=== PATIENT | female | born 1985 | race Caucasian/White ===

== ENCOUNTER 2017-09-20 03:37 | Inpatient (IN) ==
--- OUTSIDE RECORDS SUMMARY | 2017-09-20 06:30 | External Medical Summary | Continuity of Care Document ---
:1985 Author Organization [facility] Address [address] [place], [place] [address] Phone Support Name Relationship Address Phone Pa Turner spouse [address] [place] [address] Allergies, Adverse Reactions, Alerts Substance Reaction Severity Status No Known Drug Allergies Unknown Active Medications Medication Instructions Dosage Effective Dates Status Comments (start - stop) valacyclovir 500 mg take 1 tablet by 500 MG - Active tablet oral route every 12 hours ferrous sulfate 325 take 1 tablet by 325 MG - Active mg (65 mg iron) ORAL route every tablet day 28 mg take 1 tablet by Not Available - Active iron-800 mcg tablet oral route every day Problems Condition Effective Dates (start - stop) Clinical Status Unspecified maternal hypertension, - third trimester Encounter for suprvsn of normal - , third trimester 34 weeks gestation of - Spotting complicating , unspecified trimester Encntr for suprvsn of normal , unsp, unsp trimester Labor and delivery complicated by oth - cord comp, unsp Encounter for suprvsn of normal - , third trimester 37 weeks gestation of - Unspecified maternal hypertension, - third trimester Labor and delivery complicated by oth - cord comp, unsp Endo, nutritional and metab diseases - comp preg, third tri 37 weeks gestation of - Unspecified maternal hypertension, - third trimester 34 weeks gestation of - Labor and delivery complicated by oth - cord comp, unsp Endo, nutritional and metab diseases - comp preg, third tri 29 weeks gestation of - Labor and delivery complicated by oth - cord comp, unsp Encounter for suprvsn of normal - , second trimester 24 weeks gestation of - Labor and delivery complicated by oth - cord comp, unsp Encounter for suprvsn of normal - , third trimester 32 weeks gestation of - Labor and delivery complicated by oth - cord comp, unsp Encounter for suprvsn of normal - , second trimester 20 weeks gestation of - Encntr screen for infections w sexl - mode of transmiss Encounter for screening for oth - infec/parastc diseases Encounter for suprvsn of normal - , first trimester Encounter for screening of - mother 10 weeks gestation of - Encounter for suprvsn of normal - , first trimester 12 weeks gestation of - Encounter for suprvsn of normal - , first trimester 12 weeks gestation of - Encounter for suprvsn of normal - , second trimester 16 weeks gestation of - Encounter for suprvsn of normal - , third trimester 29 weeks gestation of - Encounter for suprvsn of normal - , third trimester Encounter For Screening For - Streptococcus B 36 weeks gestation of - Encounter for suprvsn of normal - , third trimester 31 weeks gestation of - Encounter For Screening For - Malformations 20 weeks gestation of - Kidney Stones Active Herpes Simplex Virus Active Procedures Procedure Date OB Visit No Charge - [facility] Automated hemogram (CBC) Metabolic panel, comprehensive Creatinine clearance test Assay Of Protein, Urine Venpnctr fngr/heel/ear stick routne Results Test Name Date and Time Measure Units Reference Range Abnormal Flag Comments Unknown Advance Directives Directive Yes / No Effective Date File Name Unknown Encounters Encounter Practice Location Reason(s) Diagnoses Date Provider Care Team Description For Visit Members Hugh Kurtz Unspecified Apr-2 Pa Referring In Womens Ultrasound maternal 5-201 [place]. 700 Provider: Health GRIFFIN, hypertension, 8 Medical See PO Box [facility] Pa R, 1522, trimesterLabor Ari Shell, and delivery 120, Medical [place], complicated by M[address] [id number], oth cord comp, [place], Ari 120, [place] unspEndo, [id number] Jerardo, tel: nutritional and , [place]. [place], metab diseases tel:[phone]. comp preg, third [id number] tel: tri37 weeks [id number] gestation of [facility] Labor and Apr-2 Pa Referring In Womens delivery -201 [place]. 700 Provider: Marlin MOYA, complicated by 8 Medical See PO Box oth cord comp, [place] Pa R, 1522, unspEncounter for Ari Shell, suprvsn of normal 120, Medical [place], , third M[address] [id number], [id number] weeks [place], Ari 120, [place] gestation of [id number] Jerardo, tel: , [place]. [place], tel: [phone]. [id number] tel:[phone] Hugh Kurtz Encounter for Apr-1 Pa Referring In Womens suprvsn of normal 9-201 [place]. 700 Provider: Health PA, , third 8 Medical See PO Box [facility] Pa R, 1522, r For Ari Shell, Screening For 120, Medical [place], Streptococcus B[address] [id number], weeks gestation [place], Ari 120, [place] of [id number] Jerardo, tel: , [place]. [place], tel: [phone]. [id number] tel:[phone] Hugh Kurtz Unspecified Apr-0 Pa Referring In Womens maternal 5-201 [place]. 700 Provider: Health GRIFFIN, hypertension, 8 Medical See PO Box third Center Pa R, 1522, trimesterEncounte Ari Shell, r for suprvsn of 120, Medical [place], normal , Kurtz, [place] [id number], third [place], Ari 120, [place] weeks gestation [id number] Jerardo, tel: of , [place]. [place], tel: [phone]. [id number] tel:[phone] Hugh Kurtz Unspecified Apr-0 Pa Referring In Womens maternal 4-201 [place]. 700 Provider: Health PA, hypertension, 8 Medical See PO Box third [id number] Center Pa R, 1522, weeks gestation Ari Shell, of 120, Medical [place], [facility] [id number], [place], [email or web address] 120, [place] [id number] Jerardo, tel: , [place]. [place], tel:[phone]. [id number] tel:[phone] Hugh Kurtz Labor and Mar-2 Pa Referring In Womens delivery 2-201 [place]. 700 Provider: Health PA, complicated by 8 Medical See PO Box oth cord comp, Center Pa R, 1522, unspEncounter for Ari Shell, suprvsn of normal 120, Medical [place], , third [facility] [id number], [email or web address] weeks [place], [email or web address] 120, [place] gestation of [id number] Jerardo, tel: , [place]. [place], tel: [phone]. [id number] tel:[phone] Hugh Kurtz Encounter for Mar-1 Pa Referring In Womens suprvsn of normal 3-201 Wilson. 700 Provider: Health PA, , third 8 Medical See PO Box [email or web address] weeks Center Pa R, 1522, gestation of Ari Shell, 120, Medical [facility] [id number], [place], [facility] [[email or web address] 120, [place] [id number] Jerardo, tel: , [place]. [place], tel: [phone]. [id number] tel:[phone] Hugh Kurtz Mar-0 Pa In Womens 1-201 See. 700 Health PA, 8 Medical PO Box Center 1522, Ari Shell, 120, [place], Kurtz, [id number], [place], [place] [id number] tel: , [place]. tel: [phone] [facility] Encounter for Feb-2 Pa Referring In Womens suprvsn of normal 8-201 Wilson. 700 Provider: Health PA, , third 8 Medical See PO Box [email or web address] weeks Center Pa R, 1522, gestation of Ari Shell, 120, Medical [place], Jerardo, [place] [id number], [place], Ari 120, [place] [id number] Jerardo, tel: , [place]. [place], tel:[phone]. [id number] tel:[phone] [facility] Labor and Feb-2 Pa Referring In Womens Ultrasound delivery 8 Wilson. 700 Provider: Health PA, complicated by 8 Medical See PO Box oth cord comp, Center Pa R, 1522, Dr [address] [place], nutritional and 120, Medical [place], metab diseases [facility] [id number], comp preg, third [place], Ari 120, [place] tri29 weeks [id number] Jearrdo, tel: gestation of , [place]. [place] tel: [phone]. [id number] tel:[phone] [facility] Labor and Robbie-2 Pa Referring In Womens delivery 5-201 [place]. 700 Provider: Health PA, complicated by 8 Medical See PO Box oth cord comp, Center Pa R, 1522, unspEncounter for Ari Shell, suprvsn of normal 120, Medical [place], , second Kurtz, [place] [id number], [email or web address] weeks [place], Ari 120, [place] gestation of [id number] Jerardo, tel: , [place]. [place] tel: [phone]. [id number] tel:[phone] [facility] Labor and Dec-2 Pa Referring In Womens delivery 8-201 [place]. 700 Provider: Health PA, complicated by 7 Medical See PO Box oth cord comp, Center Pa R, 1522, unspEncounter for Ari Shell, suprvsn of normal 120, Medical [place], , second [facility] [id number], [email or web address] weeks JENNIFER, [email or web address] 120, [place] gestation of [id number] Jerardo, tel: , [place]. [place], tel: [phone]. [id number] tel:[phone] Hugh Kurtz Encounter For Dec-2 Pa Referring In Womens Ultrasound 8-201 See. 700 Provider: Health GRIFFIN, Screening For 7 Medical See PO Box [id number] Center Pa R, 1522, weeks gestation Ari Shell, of 120, Medical [facility] [id number], [place], [facility] [[email or web address] 120, [place] [id number] Jerardo, tel: , [place]. [place], tel: [phone]. [id number] tel:[phone] Hugh Kurtz Encounter for Nov-2 Pa Referring In Womens suprvsn of normal 9-201 See. 700 Provider: Health GRIFFIN, , second 7 Medical See PO Box [email or web address] weeks Center Pa R, 1522, gestation of Ari Shell, 120, Medical Jer[facility] [id number], [place], [email or web address] 120, [place] [id number] Jerardo, tel: , [place]. [place], tel: [phone]. [id number] tel:[phone] Hugh Kurtz Encounter for Nov-0 Pa Referring In Womens suprvsn of normal 1-201 See. 700 Provider: Health GRIFFIN, , first 7 Medical See PO Box [email or web address] weeks Center Pa R, 1522, gestation of Ari Shell, 120, Medical Jerardo [facility] [id number], [place], [facility] [[email or web address] 120, [place] [id number] Jerardo, tel: , [place]. [place], tel: [phone]. [id number] tel:[phone] Hugh Kurtz Encounter for Nov-0 Pa Referring In Womens Ultrasound suprvsn of normal 1-201 See. 700 Provider: Marlin MOYA, , first 7 Medical See PO Box [email or web address] weeks Center Pa R, 1522, gestation of Ari Shell, 120, Medical JENNIFER, Jerardo, [place] [id number], [place], [facility] [[email or web address] 120, [place] [id number] Jerardo, tel: , [place]. [place], tel: [phone]. [id number] tel:[phone] Hugh Kurtz Encntr screen for Oct-1 Pa Referring In Womens infections w sexl 7-201 See. 700 Provider: Health PA, mode of 7 Medical See PO Box transmissEncounte [place] Pa R, 1522, r for screening Ari Shell, for oth 120, Medical JENNIFER, infec/parastc Jerardo, [place] [id number], diseasesEncounter [place], [email or web address] 120, [place] for suprvsn of [id number] Jerardo, tel: normal , , [place]. [place], first tel: [phone]. trimesterEncounte [id number] tel: r for [phone] screening of weeks gestation of Hugh Kurtz Spotting Sep-2 Ricardo Referring In Womens complicating 8-201 [place]. Provider: Marlin MOYA, , 7 700 [place] PO Box unspecified Medical Ricardo J, 1522, trimesterEncntr [address], for suprvsn of Ari Shell, normal , 120, Center [id number], unsp, unsp [place] [address], [place] trimester Jerardo RODRIGUEZ, tel: [phone] [place], , [place]. [id number]. tel: tel: [phone] Family History Family Member Diagnosis Age At Onset No family history of Pulmonary Embolism No family history of Venous Thrombosis Maternal Grandfather Lung Disease Mother Thyroid Disorder Father Kidney Disease Immunizations Vaccine Date Status Comments Tdap completed Source: New Immunization Record Payers Payer name Insurance type Covered democrat ID Authorization(s) [facility] [id number] [facility] [id number] Social History Type Description Quantity Date Captured Alcohol Use Details No Caffeine Use Details Unknown Tobacco Use Status Unknown Smoking Status Never smoker Vital Signs Date / Height Weight BMI Pulse Blood Temperature Respiratory Body Head BMI Time: Rate Pressure Rate Surface Circumference percentile Area 175.90 32.1 135/72 2018 lbs 7 mm[Hg] 2:17 kg/m PM eter (2) Chief Complaint And Reason For Visit Unknown Chief Complaint And Reason For Visit Reason For Referral Reason For Referral Unknown Plan Of Care Date Type Action Status Appointment Velvet Turner BOOKED Appointment Velvet Turner BOOKED Future Order: Radiology Order Ultrasound OB Follow-up ([id number]) Ordered Future Order: Radiology Order Ultrasound OB Follow-up ([id number]) Ordered Future Order: Radiology Order Nuchal Translucency ([id number]) Ordered Future Order: Radiology Order Complete OB Ultrasound > 14 Ordered Weeks ([id number]) Date Type Problem Goal Intervention Status Start Date Unknown. History Of Present Illness Encounter Date Complaint History Of Present Illness This patient has no known history of present illness Functional Status Encounter Date Functional Assessment Cognitive Assessment Unknown Medications Administered Medication Instructions Dosage Effective Dates (start - stop) Status Comments Drug Treatment Unknown Instructions Date Instruction Additional Information seat belt use childbirth classes / hospital facilities hospital registration genetic testing new ob handbook Zika virus assessment & precautions HIV and other routine tests risk factors identified by history anticipated course of care nutrition and weight gain counseling, special diet toxoplasmosis precautions (cats / raw meat) sexual activity exercise indications for ultrasound influenza vaccine environmental / work hazards travel use of any medications (including supplements, vitamins, herbs, OTC drugs) domestic violence
--- OUTSIDE RECORDS SUMMARY | 2017-09-20 06:30 | External Medical Summary | Continuity of Care Document ---
:1985 Author Organization [facility] Address [address] [place], [place] [id number] Phone Support Name Relationship Address Phone Pa Turner spouse [address] [place] [address] Allergies, Adverse Reactions, Alerts Substance Reaction Severity [...] Effective Dates (start - stop) Clinical Status Spotting complicating , unspecified trimester Encntr for suprvsn of normal , unsp, unsp trimester Labor and delivery complicated by oth - cord comp, unsp Encounter for suprvsn of normal - , third trimester 37 weeks gestation of - Unspecified maternal hypertension, - third trimester Encounter for suprvsn of normal - , third trimester 34 weeks gestation of - Unspecified maternal hypertension, [...] Herpes Simplex Virus Active Procedures Procedure Date Unknown Results Test Name Date and Time Measure Units Reference Range Abnormal Flag Comments Unknown Advance Directives Directive Yes / No Effective Date File Name Unknown Encounters Encounter Practice Location Reason(s) Diagnoses Date Provider Care Team Description For Visit Members Hugh Garciaified Aug-2 Pa Referring In Womens Ultrasound maternal 5-201 [place]. 700 Provider: Health PA, hypertension, 8 Medical [facility] Box third Center Pa R, 1522, trimesterLabor Ari Shell, and delivery 120, Medical [place], complicated by Jerardo [place] , oth cord comp, [place], Ari 120, [place] unspEndo, [id number] Jerardo, tel: nutritional and , [place]. [place], metab diseases tel:[phone]. comp preg, third [id number] tel: tri37 weeks [id number] gestation of [facility] Labor and Apr-2 Pa Referring In Womens delivery 5-201 [place]. 700 Provider: Health PA, complicated by 8 Medical [facility] Box ot cord comp, [place] Pa R, 1522, unspEncounter for Ari Shell, suprvsn of normal 120, Medical [place], , third [address] [id number], [id number] weeks [place], Ari 120, [place] gestation of [id number] Jerardo, tel: , [place]. [place], tel:[phone]. [id number] tel:[phone] [facility] Encounter for Apr-1 Pa Referring In Womens suprvsn of normal 9-201 [place]. 700 Provider: Health PA, , third 8 Medical [facility] trimesterEncounte Center Pa R, 1522, r For Ari Shell, Screening For 120, Medical [place], Streptococcus B[address] [id number], weeks gestation [place], Ari 120, [place] of [id number] Jerardo, tel: , [place]. [place], tel: [phone]. [id number] tel:[phone] Hugh Kurtz Apr-0 Pa In Womens 6-201 [place]. 700 Health PA, 8 Medical PO Box Center 1522, Ari Shell, 120, [place], Kurtz, [id number], [place], [place] [id number] tel: , [place]. tel: [phone] Hugh Kurtz Unspecified Apr-0 Pa Referring In Womens maternal 5-201 [place]. 700 Provider: Health PA, hypertension, 8 Medical See PO Box third Center Pa R, 1522, trimesterEncounte Ari Shell, r for suprvsn of 120, Medical [place], normal , Kurtz, [place] [id number], third [id number] [place], [facility] 120, [place] weeks gestation [id number] Jerardo, tel:+ of , [place]. [place], tel: [phone]. [id number] tel:[phone] Hugh Kurtz Unspecified Apr-0 Pa Referring In Womens maternal 4-201 [place]. 700 Provider: Health PA, hypertension, 8 Medical See PO Box third [email or web address] Center Pa R, 1522, weeks gestation Ari Shell, of 120, Medical [facility] [id number], [place], Ari 120, [place] [id number] Jerardo, tel: , [place]. [place], tel: [phone]. [id number] tel:[phone] Hugh Kurtz Labor and Mar-2 Pa Referring In Womens delivery 2-201 [place]. 700 Provider: Health GRIFFIN, complicated by 8 Medical See PO Box oth cord comp, Center Pa R, 1522, unspEncounter for Ari Shell, suprvsn of normal 120, Medical [place], , third [facility] [id number], [email or web address] weeks [place], [facility] 120, [place] gestation of [id number] Jerardo, tel: , [place]. [place], tel: [phone]. [id number] tel:[phone] Hugh Kurtz Encounter for Mar-1 Pa Referring In Womens suprvsn of normal 3-201 [place]. 700 Provider: Health PA, , third 8 Medical See PO Box [email or web address] weeks Center Pa R, 1522, gestation of Ari Shell, 120, Medical Jer[facility] [id number], [place], Ari 120, [place] [id number] Jerardo, tel: , [place]. [place], tel: [phone]. [id number] tel:[phone] Hugh Kurtz Mar-0 Pa In Womens 1-201 [place]. 700 Health PA, 8 Medical PO Box Center 1522, Ari Shell, 120, [place], Kurtz, [id number], [place], [place] [id number] tel: , [place]. tel: [phone] [facility] Encounter for Feb-2 Pa Referring In Womens suprvsn of normal 8- [place]. 700 Provider: Health GRIFFIN, , third 8 Medical See PO Box [email or web address] weeks Center Pa R, 1522, gestation of Ari Shell, 120, Medical JENNIFER, [facility] [id number], [place], Ari 120, [place] [id number] Jerardo, tel: , [place]. [place], tel: [phone]. [id number] tel:[phone] [facility] Labor and Feb-2 Pa Referring In Womens Ultrasound delivery [place]. 700 Provider: Health GRIFFIN, complicated by 8 Medical See PO Box oth cord comp, Center Pa R, 1522, unspEnDr kai Ari Cesar Roche, nutritional and 120, Medical [place], metab diseases [facility] [id number], comp preg, third [place], Ari 120, [place] tri29 weeks [id number] Jerardo, tel: gestation of , [place]. [place], tel: [phone]. [id number] tel:[phone] [facility] Labor and Robbie-2 Pa Referring In Womens delivery 5- [place]. 700 Provider: Health GRIFFIN, complicated by 8 Medical See PO Box oth cord comp, Center Pa R, 1522, unspEncounter for Ari Shell, suprvsn of normal 120, Medical [place], , second [facility] [id number], [email or web address] weeks [place], Ari 120, [place] gestation of [id number] Jerarod, tel: , [place]. [place], tel: [phone]. [id number] tel:[phone] [facility] Labor and Dec-2 Pa Referring In Womens delivery 8 [place]. 700 Provider: Health GRIFFIN, complicated by 7 Medical See PO Box oth cord comp, Center Pa R, 1522, unspEncounter for Ari Shell, suprvsn of normal 120, Medical [place], , second [facility] [id number], [email or web address] weeks JENNIFER, [facility] 120, [place] gestation of [id number] Jerardo, tel: , [place]. [place], tel: [phone]. [id number] tel:[phone] Hugh Kurtz Encounter For Dec-2 Pa Referring In Womens Ultrasound 8-201 See. 700 Provider: Health GRIFFIN, Screening For 7 Medical See PO Box [id number] Center Pa R, 1522, weeks gestation Ari Shell, of 120, Medical Jer[facility] [id number], [place], Ari 120, [place] [id number] Jerardo, tel: , [place]. [place], tel: [phone]. [id number] tel:[phone] Hugh Kurtz Encounter for Nov-2 Pa Referring In Womens suprvsn of normal 9-201 See. 700 Provider: Health GRIFFIN, , second 7 Medical See PO Box [email or web address] weeks Center Pa R, 1522, gestation of Ari Shell, 120, Medical Jerardo [facility] [id number], [place], Ari 120, [place] [id number] Jerardo, tel: , [place]. [place], tel: [phone]. [id number] tel:[phone] Hugh Kurtz Encounter for Nov-0 Pa Referring In Womens suprvsn of normal 1-201 See. 700 Provider: Health GRIFFIN, , first 7 Medical See PO Box [email or web address] weeks Center Pa R, 1522, gestation of Ari Shell, 120, Medical Jer[facility] [id number], [place], Ari 120, [place] [id number] Jerardo, tel: , [place]. [place], tel: [phone]. [id number] tel:[phone] Hugh Kurtz Encounter for Nov-0 Pa Referring In Womens Ultrasound suprvsn of normal 1-201 See. 700 Provider: Health PA, , first 7 Medical See PO Box [email or web address] weeks Center Pa R, 1522, gestation of Ari Shell, 120, Medical Jerardo RODRIGUEZ, [place] [id number], [place], [facility] 120, [place] [id number] Jerardo, tel: , [place]. [place], tel: [phone]. [id number] tel:[phone] Hugh Kurtz Encntr screen for Oct-1 Pa Referring In Womens infections w sexl 7-201 See. [facility] Provider: Health GRIFFIN, mode of 7 [facility] See PO Box transmissEncounte [place] Pa R, 1522, r for screening Ari Shell, for oth 120, Medical JENNIFER, infec/parastc Jerardo, [place] [id number], diseasesEncounter [place], [facility] 120, [place] for suprvsn of [id number] Jerardo, tel: normal , , [place]. [place], first tel: [phone]. trimesterEncounte [id number] tel: r for [id number] screening of [id number] weeks gestation of Hugh Kurtz Spotting Sep-2 Ricardo Referring In Womens complicating 8-201 [place]. Provider: Marlin MOYA, , 7 700 [place] PO Box unspecified Wendie Silva J, 1522, [address]Encntr [address], for suprvsn of Ari Shell, normal , 120, Center [id number], unsp, unsp [facility] 120, [place] trimester Jerardo RODRIGUEZ, tel: [phone] [facility] , [place]. [id number]. tel: tel: [phone] Family History Family Member Diagnosis Age At Onset No family history of Pulmonary Embolism No family history of Venous Thrombosis Maternal Grandfather Lung Disease Mother Thyroid Disorder Father Kidney Disease Immunizations Vaccine Date Status Comments Tdap completed Source: New Immunization Record Payers Payer name Insurance type Covered republican ID Authorization(s) [facility] [id number] [facility] [id number] Social History Type Description Quantity Date Captured Unknown Vital Signs Date / Height Weight BMI Pulse Blood Temperature Respiratory Body Head BMI Time: Rate Pressure Rate Surface Circumference percentile Area Unknown Chief Complaint And Reason For Visit Unknown Chief Complaint And Reason For Visit Reason For Referral Reason For Referral Unknown Plan Of Care Date Type Action Status Appointment Velvet Turner BOOKED Appointment Velvet Turner BOOKED Future Order: Radiology Order Ultrasound OB Follow-up ([id number]) Ordered Future Order: Radiology Order Ultrasound OB Follow-up ([id number]) Ordered Future Order: Radiology Order Nuchal Translucency ([id number]) Ordered Future Order: Radiology Order Complete OB Ultrasound > 14 Ordered Weeks ([id number]) Date Type Problem Goal Intervention Status Start [...]
--- OUTSIDE RECORDS SUMMARY | 2017-09-20 06:31 | External Medical Summary | Continuity of Care Document ---
:1985 Author Organization [facility] Allergies Active Description Code Type Severity Reaction Onset Reported/ Identified Relationship Clinical to Patient Status Yes No Known 90074 3 N/A N/A Drug 0 Allergies Yes No Known NKMA N/A N/A 07/04/2016 Allergies Yes No Known Aller Unknown N/A 09/07/2017 Allergies gy Medications Medication Packaging Start Date Stop Date Route Dosage Sig 1 elisabeth 07/04/2016 Topical clotrimazole 7 1 elisabeth, topical(clotrimazo Topical, le 1% topical BID, for 14 cream) days, 30 g, 0 Refill(s) 02/02/2017 PO 1 each One-A-Day DAILY 1 Dha Sfgl 06/14/2017 PO 500 mg Amoxicillin TID Tablet 07/13/2017 FERROUS SULFATE take 1 tablet by ORAL route every day 08/10/2017 PO 325 mg Ferrous Sulfate DAILY Tablet 09/06/2017 VALACYCLOVIR take 1 tablet by oral route every 12 hours 09/07/2017 PO 500 mg Valtrex BID Tablet 09/14/2017 ZITHROMAX 8 take 2 tablet by oral route every day for 1 day then 1 tablet (250 mg) by oral route once daily for 4 days Problems Date Dx Attending Type Code Diagnosis Diagnosed By Coded 07/04/2016 Navin Morrow R21 Rash and other Karyn L nonspecific skin eruption 02/02/2017 BECKY MARCELINO 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 L TUBE LASER OPERATOR (endemic) goiter 02/02/2017 BECKY MARCELINO E04.1 Nontoxic single BECKY MARCELINOP thyroid nodule L TUBE LASER OPERATOR 02/02/2017 BECKY MARCELINO N91.2 Amenorrhea, BECKY MARCELINOP unspecified L TUBE LASER OPERATOR 02/02/2017 BECKY MARCELINO Z32.01 Encounter for BECKY MARCELINO test, L TUBE LASER OPERATOR result positive 02/10/2017 Kalpana Silva O26.859 Spotting J complicating , unspecified trimester 02/10/2017 Ricardo Kalpana Toro Z34.90 Encntr for suprvsn J of normal , unsp, unsp trimester 02/13/2017 Nicki Silvaling Toro O26.859 Spotting J complicating , unspecified trimester 02/13/2017 Kalpana Silva Z34.90 Encntr for suprvsn J of normal , unsp, unsp trimester 02/28/2017 See Winn Z34.81 Encounter for suprvsn of normal , first trimester 02/28/2017 See Winn Z3A.10 10 weeks gestation of 03/15/2017 See Winn Z34.81 Encounter for suprvsn of normal , first trimester 03/15/2017 See Winn Z3A.12 12 weeks gestation of 04/26/2017 SAMARIA ROSADO, MARLENY E04.9 Nontoxic goiterSAMARIA MD, JAN M unspecified M 04/26/2017 SAMARIA ROSADO, MARLENY Z33.1 state, MARLENY MERA MD incidental M 04/26/2017 SAMARIA ROSADO, MARLENY Z86.39 Personal history of MARLENY MERA MD other endocrine, M nutritional and metabolic disease 05/11/2017 See Winn Z36.3 Encounter For Screening For Malformations 05/11/2017 See Winn Z3A.20 20 weeks gestation of 07/12/2017 SAMARIA ROSADO, MARLENY E04.9 Nontoxic goiterSAMARIA MD, MARLENY Roberts unspecified M 07/12/2017 SAMARIA ROSADO, MARLENY Z33.1 state, MARLENY MERA MD incidental M 07/12/2017 SAMARIA ROSADO, MARLENY Z86.39 Personal history of MARLENY MERA MD other endocrine, M nutritional and metabolic disease 07/12/2017 See Winn O69.89x0 Labor and delivery complicated by oth cord comp, unsp 07/12/2017 See Winn O99.283 Endo, nutritional and metab diseases comp preg, third tri 07/12/2017 See Winn Z3A.29 29 weeks gestation of 09/06/2017 See Winn O16.3 Unspecified maternal hypertension, third trimester 09/06/2017 See Winn O69.89x0 Labor and delivery complicated by oth cord comp, unsp 09/06/2017 See Winn O99.283 Endo, nutritional and metab diseases comp preg, third tri 09/06/2017 See Winn Z3A.37 37 weeks gestation of Procedures Code Description [place] [address] Office or 07/04/2016 other outpatient visit for the evaluation and management of an established patient, which requires at least 2 of these 3 brady components: An expanded problem focused history; An expanded prob 16086 Venpnctr 02/09/2017 fngr/heel/ear stick routne 85061 OB Panel With 02/09/2017 An HIV 26603 02/09/2017 Office/outpatient visit,[facility] barcenas 27680 OB Visit No 02/28/2017 Charge 16284 Ultrasound, 03/15/2017 Nuchal Translucency Measurement 71080 Ultrasnd exam 05/11/2017 of preg uterus, compl 22387 Ultrasnd preg 07/12/2017 uterus, flwup/repeat 81801 Echo exam of 07/12/2017 heart 78803 Doppler color 07/12/2017 flow mapping 20481 Ultrasnd preg 09/06/2017 uterus, flwup/repeat Results Test Result Range L550.3832 - 02/02/17 16:15 LUPREGT-AMB Positive Negative L908.3165 - 02/02/17 16:15 Free T4 (Free Thyroxine)-AMS 0.8 ng/dL 0.7-1.5 L750.9150 - 02/02/17 16:15 TSH - Thyroid Stim Horm-AMS 1.16 uIU/mL 0.35-4.94 L908.3165 - 04/26/17 16:07 Free T4 (Free Thyroxine)-AMS 0.8 ng/dL 0.7-1.5 L750.9150 - 04/26/17 16:07 TSH - Thyroid Stim Horm-AMS 0.85 uIU/mL 0.35-4.94 L750.8895 - 04/26/17 16:07 Thyroperoxidase Ab - AMS 6 IU/mL 0-6 Thyroglobulin Ab Screen - AMS 173 IU/mL 0-5 L908.3165 - 06/06/17 09:05 Free T4 (Free Thyroxine)-AMS 0.8 ng/dL 0.7-1.5 L750.9150 - 06/06/17 09:05 TSH - Thyroid Stim Horm-AMS 0.96 uIU/mL 0.35-4.94 L550.3405 - 06/14/17 14:22 LSTREPAT-AMB Negative Negative L550.3500 - 06/14/17 14:49 Influenza A Antigen Scr Result Negative Negative Influenza B Antigen Scr Result Negative Negative M750.4390 - 06/14/17 14:49 Group A Strep Culture - AMS Source: Throat NRG Collected: 06/14/17 14:49 L908.3165 - 07/12/17 16:27 Free T4 (Free Thyroxine)-AMS 0.8 ng/dL 0.7-1.5 L750.9150 - 07/12/17 16:27 TSH - Thyroid Stim Horm-AMS 0.86 uIU/mL 0.35-4.94 L908.3165 - 08/10/17 09:52 Free T4 (Free Thyroxine)-AMS 0.8 ng/dL 0.7-1.5 L750.9150 - 08/10/17 09:52 TSH - Thyroid Stim Horm-AMS 0.74 uIU/mL 0.35-4.94 L908.3165 - 09/07/17 11:29 Free T4 (Free Thyroxine)-AMS 0.8 ng/dL 0.7-1.5 L750.9150 - 09/07/17 11:29 TSH - Thyroid Stim Horm-AMS 0.88 uIU/mL 0.35-4.94 Encounters ACCT No. Visit Discharge Status Pt. Provider Facility Loc./Unit Complaint Date/Time Type [id number] 09/14/2017 09/14/2017 CLS Tereza Winn, 14:15:00 23:59:59 ent See Butts [id number] 09/07/2017 09/07/2017 CLS Tereza Winn, 13:53:00 23:59:59 ent See Butts [id number] 09/06/2017 09/06/2017 CLS Tereza Winn, 21:53:00 23:59:59 ent See Butts [id number] 09/06/2017 09/06/2017 CLS Outpati Pa, 15:15:00 23:59:59 ent See R [id number] 09/06/2017 09/06/2017 CLS Outpati Pa, 14:00:00 23:59:59 ent See R [id number] 08/31/2017 08/31/2017 CLS Outpati Pa, 14:15:00 23:59:59 ent See R [id number] 08/18/2017 08/18/2017 CLS Outpati Pa, 10:14:00 23:59:59 ent See R [id number] 08/17/2017 08/17/2017 CLS Outpati Pa, 13:35:00 23:59:59 ent See R [id number] 08/17/2017 08/17/2017 CLS Outpati Pa, 13:35:00 23:59:59 ent See R [id number] 08/16/2017 08/16/2017 CLS Outpati Pa, 15:15:00 23:59:59 ent See R [id number] 08/16/2017 08/16/2017 CLS Outpati Pa, 13:15:00 23:59:59 ent See R [id number] 08/03/2017 08/03/2017 CLS Outpati Pa, 14:30:00 23:59:59 ent See R [id number] 07/25/2017 07/25/2017 CLS Outpati Pa, 14:20:00 23:59:59 ent See R [id number] 07/13/2017 07/13/2017 CLS Outpati Pa, 08:12:00 23:59:59 ent See R [id number] 07/12/2017 07/12/2017 CLS Outpati Pa, 14:35:00 23:59:59 ent See R [id number] 07/12/2017 07/12/2017 CLS Outpati Pa, 14:15:00 23:59:59 ent See R [id number] 06/08/2017 06/08/2017 CLS Outpati Pa, 15:50:00 23:59:59 ent See R [id number] 05/11/2017 05/11/2017 CLS Outpati Pa, 14:45:00 23:59:59 ent See R [id number] 05/11/2017 05/11/2017 CLS Outpati Pa, 14:15:00 23:59:59 ent See R [id number] 04/12/2017 04/12/2017 CLS Outpati Pa, 16:30:00 23:59:59 ent See R [id number] 03/15/2017 03/15/2017 CLS Outpati Pa, 16:05:00 23:59:59 ent See R [id number] 03/15/2017 03/15/2017 CLS Outpati Pa, 15:45:00 23:59:59 ent See R [id number] 02/28/2017 02/28/2017 CLS Outpati Pa, 14:30:00 23:59:59 ent See Beckie [id number] 02/09/2017 02/09/2017 CLS Outpati Silva, 15:15:00 23:59:59 ent Aklpana J [id number] 07/04/2016 07/04/2016 DIS Outpati Cristhian, [facility] W21 rash 9483 09:38:00 23:59:00 ent Karyn Mcgarry [facility] [id number] 09/07/2017 09/07/2017 DIS Outpati MERA Diabetes Hashimotos 8787 10:30:00 11:27:00 MARLENY hernandez MD & Endocrinolog y [id number] 08/10/2017 08/10/2017 DIS Outpati MERA Diabetes Hashimotos 5966 08:59:00 10:02:00 ent MARLENY ROSADO & Endocrinolog y [id number] 07/12/2017 07/12/2017 DIS Outpati MERA Diabetes Hashimotots 5242 15:17:00 16:03:00 MARLENY hernandez MD & Endocrinolog y [id number] 06/14/2017 06/14/2017 DIS Outpati WUTHNOW [employer]PCOM 7245 12:29:00 15:13:00 ent DUYEN MOYA [facility] [id number] 06/06/2017 06/06/2017 DIS Outpati MERA Diabetes Maritza& #3 2266 08:27:00 09:56:00 ent MARLENY ROSADO & 9;s Endocrinolog y [id number] 04/26/2017 04/26/2017 DIS Outpati MERA Diabetes Rt Sided 3788 14:43:00 16:03:00 MARLENY hernandez MD & Thyromyglia Endocrinolog y [id number] 02/02/2017 02/02/2017 [facility] 5354 15:35:00 16:24:00 ent BECKY mills/breanne THOMAS Practice ybe [id number] 07/05/2016 Documen [id number] 05:17:29 t Cassidy peterson
--- OUTSIDE RECORDS SUMMARY | 2017-09-20 06:31 | External Medical Summary | Continuity of Care Document ---
:1985 Author Organization [facility] Address [address] [place], [place] [id number] Phone Support Name Relationship Address Phone Pa Turner spouse [address] [place] [address] Allergies, Adverse Reactions, Alerts Substance Reaction Severity [...] Pa Referring In Womens Ultrasound maternal 5-201 Andrews. 700 Provider: Health GRIFFIN, hypertension, 8 [facility] third Center Pa R, 1522, trimesterLabor Ari Shell, and delivery 120, Medical CT, complicated by Micaela [address] Dr [id number], oth cord comp, [place], Ari 120, [place] unspEndo, [id number] Jerardo, tel: nutritional and , [place]. [place], metab diseases tel:[phone]. comp preg, third [id number] tel: tri37 weeks [id number] gestation of [facility] Labor and Apr-2 Pa Referring In Womens delivery -201 Andrews. 700 Provider: Marlin MOYA, complicated by 8 [facility] oth cord comp, [place] Pa R, 1522, unspEncounter for Ari Shell, suprvsn of normal 120, Medical CT, , third Micaela [address] Dr [id number], [email or web address] weeks [place], Ari 120, [place] gestation of [id number] Jerardo, tel: , [place]. [place], tel:[phone]. [id number] tel:[phone] Hugh Kurtz Encounter for Apr-1 Pa Referring In Womens suprvsn of normal 9-201 Andrews. 700 Provider: Marlin MOYA, , third [facility] trimesterEncounte Center Pa R, 1522, r For Ari Shell, Screening For 120, Medical CT, Streptococcus B[address] [id number], weeks gestation [place], Ari 120, [place] of [id number] Jerardo, tel: , [place]. [place], tel: [phone]. [id number] tel:[phone] Hugh Kurtz Apr-0 Pa Referring In Womens 5-201 Andrews. 700 Provider: Marlin MOYA, 8 [facility] Pa R, 1522, Ari Shell, 120, Medical JENNIFER, Micaela [address]z Dr [id number], [place], Ari 120, [place] [id number] Jerardo, tel: , [place]. [place], tel:[phone]. [id number] tel:[phone] [facility] Unspecified Apr-0 Pa Referring In Womens maternal 5-201 See. 700 Provider: Health PA, hypertension, 8 Medical See PO Box third Center Pa R, 1522, trimesterEncounte Ari Shell, r for suprvsn of 120, Medical [place], normal , [id number], third CT, Ari 120, [place] weeks gestation [id number] Jerardo, tel: of , [place]. [place], tel: [phone]. [id number] tel:[phone] [facility] Unspecified Apr-0 Pa Referring In Womens maternal 4-201 See. 700 Provider: Health PA, hypertension, 8 Medical See PO Box third [email or web address] Center Pa R, 1522, weeks gestation Ari Shell, of 120, [facility] [id number], [place], Ari 120, [place] [id number] Jerardo, tel: , [place]. [place], tel: [phone]. [id number] tel:[phone] [facility] Labor and Mar-2 Pa Referring In Womens delivery 2-201 See. 700 Provider: Health PA, complicated by 8 Medical See PO Box oth cord comp, Center Pa R, 1522, unspEncounter for Ari Shell, suprvsn of normal 120, Medical CT, , third [facility] [id number], [email or web address], Ari 120, [place] gestation of [id number] Jerardo, tel: , [place]. [place], tel: [phone]. [id number] tel:[phone] [facility] Encounter for Mar-1 Pa Referring In Womens suprvsn of normal 3-201 See. 700 Provider: Health PA, , third 8 Medical See PO Box [email or web address] weeks Center Pa R, 1522, gestation of Ari Shell, 120, Medical [facility] [id number], CT, Ari 120, [place] [id number] Jerardo, tel: , [place]. [place] tel:[phone]. [id number] tel:[phone] Hugh Kurtz Mar-0 Pa In Womens 1- Andrews. 700 Health PA, 8 Medical PO Box Center 1522, Ari Shell, 120, [place], Kurtz, [id number], [place], [place] [id number] tel: , [place]. tel: [phone] [facility] Encounter for Feb-2 Pa Referring In Womens suprvsn of normal - Andrews. 700 Provider: Health PA, , third 8 Medical See PO Box [email or web address] weeks Center Pa R, 1522, gestation of Ari Shell, 120, Medical [place], Kurtz, [place] , [place], Ari 120, [place] [id number] Jerardo, tel: , [place]. [place], tel: [phone]. [id number] tel:[phone] [facility] Labor and Feb-2 Pa Referring In Womens Ultrasound delivery 8 Andrews. 700 Provider: Health GRIFFIN, complicated by 8 Medical See PO Box oth cord comp, Center Pa R, 1522, unspEndoDr, Ari Roche, nutritional and 120, Medical [place], metab diseases Jerardo [place] [id number], comp preg, third CT, Ari 120, [place] tri29 weeks [id number] Jerardo, tel: gestation of , [place]. [place] tel: [phone]. [id number] tel:[phone] Hugh Kurtz Labor and Robbie-2 Pa Referring In Womens delivery Andrews. 700 Provider: Health GRIFFIN, complicated by 8 Medical See PO Box oth cord comp, Center Pa R, 1522, unspEncounter for Ari Shell, suprvsn of normal 120, Medical CT, , second Jerardo [place] [id number], [email or web address] weeks CT, Ari 120, [place] gestation of [id number] [place], tel: , [place]. [place] tel: [phone]. [id number] tel:[phone] [facility] Labor and Dec-2 Pa Referring In Womens delivery 8-201 Andrews. 700 Provider: Health PA, complicated by 7 Medical See PO Box oth cord comp, Center Pa R, 1522, unspEncounter for Ari Shell, suprvsn of normal 120, Medical CT, , second Kurtz, [place] [id number], [email or web address] weeks [address], [facility] 120, [place] gestation of [id number] Jerardo, tel:+ , [place]. [place], tel: [phone]. [id number] tel:[phone] Hugh Kurtz Encounter For Dec-2 Pa Referring In Womens Ultrasound 8-201 Andrews. 700 Provider: Health PA, Screening For 7 Medical See PO Box [email or web address] Center Pa R, 1522, weeks gestation Ari Shell, of 120, Medical Jerardo [facility] [id number], CT, [facility] 120, [place] [id number] Jerardo, tel:+ , [place]. [place], tel: [phone]. [id number] tel:[phone] Hugh Kurtz Encounter for Nov-2 Pa Referring In Womens suprvsn of normal 9-201 Andrews. 700 Provider: Health PA, , second 7 Medical See PO Box [email or web address] weeks Center Pa Butts, 1522, gestation of Ari Shell, 120, Medical Jerardo [facility] [id number], CT, Ari 120, [place] [id number] Jerardo, tel:+ , [place]. [place], tel: [phone]. [id number] tel:[phone] Hugh Kurtz Encounter for Nov-0 Pa Referring In Womens suprvsn of normal 1-201 Andrews. 700 Provider: Health PA, , first 7 Medical See PO Box [email or web address] weeks Center Pa R, 1522, gestation of Ari Shell, 120, Medical Jerardo [facility] [id number], CT, Ari 120, [place] [id number] Jerardo, tel:+ , [place]. [place] tel: [phone]. [id number] tel:[phone] Hugh Kurtz Encounter for Nov-0 Pa Referring In Womens Ultrasound suprvsn of normal 1-201 See. 700 Provider: Health GRIFFIN, , first 7 Medical See PO Box [email or web address] weeks Center Pa R, 1522, gestation of Ari Shell, 120, Medical JENNIFER, Kurtz, [place] [id number], CT, [facility] 120, [place] [id number] Jerardo, tel: , [place]. [place], tel: [phone]. [id number] tel:[phone] Hugh Kurtz Encntr screen for Oct- Pa Referring In Womens infections w sexl 7-201 See. 700 Provider: Health GRIFFIN, mode of 7 Medical See PO Box transmissEncounte [place] Pa R, 1522, r for screening Ari Shell, for oth 120, Medical JENNIFER, infec/parastc [facility] [id number], diseasesEncounter CT, [facility] 120, [place] for suprvsn of [id number] Jerardo, tel: normal , , [place]. CT, first tel: [phone]. trimesterEncounte [id number] tel: r for [id number] screening of weeks gestation of Hugh Kurtz Spotting Sep-2 Silva Referring In Womens complicating 8-201 Kalpana. Provider: Health GRIFFIN, , 7 700 Kalpana PO Box unspecified Medical Silva J, 1522, trimesterEncntr [place] Cesar Roche, for suprvsn of Ari Shell, normal , 120, Center [id number], unsp, un[facility], [place] trimester Jerardo RODRIGUEZ, tel: [phone] CT, , [place]. [id number]. tel: tel: [phone] Family History Family Member Diagnosis Age At Onset No family history of Pulmonary Embolism No family history of Venous Thrombosis Maternal Grandfather Lung Disease Mother Thyroid Disorder Father Kidney Disease Immunizations Vaccine Date Status Comments Tdap completed Source: New Immunization Record Payers Payer name Insurance type Covered constitution party ID Authorization(s) [facility] JENNIFER MANZANO [id number] [facility] [id number] Social History Type Description Quantity Date Captured Unknown Vital Signs Date / Height Weight BMI Pulse Blood Temperature Respiratory Body Head BMI Time: Rate Pressure Rate Surface Circumference percentile Area Unknown Chief Complaint And Reason For Visit Unknown Chief Complaint And Reason For Visit Reason For Referral Reason For Referral Unknown Plan Of Care Date Type Action Status Appointment Yue, Velvet BOOKED Appointment Velvet Turner BOOKED Future Order: Radiology Order Ultrasound OB Follow-up ([id number]) Ordered Future Order: Radiology Order Ultrasound OB Follow-up ([id number]) Ordered Future Order: Radiology Order Nuchal Translucency ([id number]) Ordered Future Order: Radiology Order Complete OB Ultrasound > 14 Ordered Weeks ([id number]) Date Type Problem Goal Intervention Status Start [...]
[2017-09-20] MEDS ORDERED: CALCIUM CARBONATE Chewable 500mg TABLET PO PRN ×2 (06:35→18:28)
[2017-09-20] MEDS ORDERED: OXYTOCIN DRIP 30 UNIT/500 ML ML IV PRN (06:35)
[2017-09-20] MEDS ORDERED: ACETAMINOPHEN 500 MG TABLET PO PRN ×2 (06:35→18:28)
[2017-09-20] MEDS ORDERED: MAG-AL + SIM ORAL LIQUID 30ml PO PRN ×2 (06:35→18:28)
[2017-09-20] MEDS ORDERED: METHYLERGONOVINE 0.2 MG/ML INJECTION IM PRN (06:35)
[2017-09-20] MEDS ORDERED: LIDOCAINE 1% (10mg/ml) 2mL INJ PF SDV ID PRN (06:35)
[2017-09-20] MEDS ORDERED: CARBOPROST 250 MCG/ML INJECTION IM PRN (06:35)
[2017-09-20 06:50] VITALS: BMI 31.3
[2017-09-20] MEDS: LR 1,000 ML IV PRN ×2 (06:59→09:56)
[2017-09-20] MEDS: D5LR 1,000 ML IV PRN ×2 (06:59→15:46)
--- NOTE | 2017-09-20 07:26 | Anesthesia Preoperative Report ---
Anesthesia Epidural/Spinal Rec - Date and Time Date: 09/20/17 Preoperative Diagnosis: induction Procedure: Labor Epidural Plan: Epidural - Vital Signs Vital Signs: Temperature 98.3 F 09/20/17 06:46 Pulse Rate 103 H 09/20/17 06:46 Respiratory Rate 18 09/20/17 06:46 Blood Pressure 140/92 H 09/20/17 06:46 Pulse Oximetry 97 09/20/17 06:46 /Para: P:1 - Medictaions & Allergies Inpatient Medications: Current Medications Acetaminophen (Tylenol) 500 - 1,000 mg PO Q4H PRN PRN Reason: Pain Al Hydroxide/Mg Hydroxide (Maalox Plus) 30 ml PO Q3H PRN PRN Reason: Indigestion Calcium Carbonate (Tums) 500 - 1,000 mg PO Q2H PRN PRN Reason: Indigestion Carboprost Tromethamine (Hemabate) 250 mcg IM O PRN PRN Reason: .Downtime Dextrose/Lactated Ringer's (Dextrose 5%-Lactated Ringers) 1,000 mls @ 125 mls/ hr IV .Q8H PRN PRN Reason: Labor Last Admin: 09/20/17 06:59 Dose: 125 mls/hr Lactated Ringer's (Lactated Ringers) 1,000 mls @ 999 mls/hr IV .Q1H1M PRN Last Admin: 09/20/17 06:59 Dose: 999 mls/hr Oxytocin (Pitocin Drip) 30 unit in 500 mls @ 2 mls/hr IV .Q24H PRN; Protocol PRN Reason: Induction/Augmentation Last Admin: 09/20/17 06:59 Dose: 2 mls/hr Lidocaine HCl (Xylocaine-Mpf 1% Vial) 0.2 mg ID O PRN PRN Reason: IV Start Methylergonovine Maleate (Methergine) 0.2 mg IM O PRN Misoprostol (Cytotec) 800 mcg MT ONCE PRN Allergies/Adverse Reactions: Allergies Allergy/AdvReac Type Severity Reaction Status Date / Time No Known Allergies Allergy Verified 09/20/17 06:51 - Home Medications Home Medications: Home Medications Medication Instructions Recorded Confirmed Type vit 123-iron 28 mg-folic 1 cap PO DAILY cap 02/02/17 09/07/17 History acid 800 qic-ubrmb-3h 235 mg capsule ferrous sulfate 325 mg (65 mg 325 mg PO DAILY tab 08/10/17 09/07/17 History iron) tablet Valtrex (valacyclovir) 500 mg 500 mg PO BID 09/07/17 09/07/17 History tablet - Medical History Cardiovascular: Reports: Hypertension Neuro/Musculoskeletal: Reports: Depression (no meds; hx of) Renal/Endocrine: Reports: Thyroid Disease (no meds) Other History: Reports: Now - Surgical History Reproductive Surgery/Treatment: DENIES: Section Anesthesia Reactions: None Hx Family Anesthesia Reaction: No History of Motion Sickness: No - Social History Smoking Status: Never smoker Second Hand Exposure: No Substance Use Type: does not use Alcohol Intake: current Alcohol Intake Frequency: a few times a month Hx Chewing Tobacco Use: No - Pertinent Findings Lab Data: CBC and BMP 09/20/17 06:43 EKG Rhythm: Normal Sinus Rhythm - Physical Exam Respiratory Exam: lungs clear Cardiovascular Exam: regular rate and rhythm, no murmur - Airway Assessment Mallampati Score: II TMD: 3 Fingerbreadths Neck Extension: good Teeth: chipped teeth/crowns Overall Assessment: no airway concerns - ASA ASA Score: 2 - Discussion Discussion: Discussed risks/options/alternatives of anesthesia and questions answered. Patient consents. Nursing pain assessment noted. Attestation Statement: Prior to the delivery of any anesthetic medication, I examined the patient, developed the plan, obtained the patient's consent and discussed the risk and benefits of the procedure with the patient/guardian.
[2017-09-20] MEDS ORDERED: ROPIVACAINE 1% 10MG/ML INJ 200 MG, SUFentanil 50 MCG in NS 100 ML EPI PRN (10:32)
[2017-09-20] MEDS ORDERED: NALOXONE 0.4 MG/ML INJECTION IVP PRN (10:32)
[2017-09-20] MEDS ORDERED: DiphenhydrAMINE 50 MG/ML INJECTION IVP PRN (10:32)
[2017-09-20] MEDS ORDERED: ONDANSETRON 4 MG/2 ML INJECTION IVP PRN (10:32)
[2017-09-20] MEDS ORDERED: NEOMYCIN/POLYMYXIN/BACITRACIN OINT PACKET TP PRN (17:29)
[2017-09-20] MEDS: NEOMYCIN/POLYMYXIN/BACITRACIN OINT PACKET TP PRN ×2 (17:40→22:15)
[2017-09-20] MEDS ORDERED: METOCLOPRAMIDE 10mg/2ml INJECTION IVP PRN (18:24)
[2017-09-20] MEDS ORDERED: IBUPROFEN 800 MG TABLET PO PRN (18:28)
[2017-09-20] MEDS ORDERED: DiphenhydrAMINE 25 MG CAPSULE PO PRN (18:28)
[2017-09-20] MEDS ORDERED: HYDROCORTISONE 2.5% CREAM 30gm RECTALLY PRN (18:28)
[2017-09-20] MEDS: OXYTOCIN DRIP 30 UNIT/500 ML ML IV SCH (19:56)
[2017-09-20] MEDS: HYDROCODONE/APAP 5mg/325mg TABLET PO PRN (21:52)
[2017-09-20] MEDS: VALACYCLOVIR 500 MG TABLET PO SCH (21:54)
[2017-09-21] MEDS: OXYTOCIN DRIP 30 UNIT/500 ML ML IV SCH (01:09)
[2017-09-21] MEDS: NEOMYCIN/POLYMYXIN/BACITRACIN OINT PACKET TP PRN (02:15)
[2017-09-21] MEDS: HYDROCODONE/APAP 5mg/325mg TABLET PO PRN ×3 (05:05→16:29)
[2017-09-21 07:31] VITALS: O2SAT 98
[2017-09-21] MEDS ORDERED: FERROUS SULFATE 324 MG TABLET PO SCH (08:00)
--- NOTE | 2017-09-21 08:17 | OB/GYN Progress Note ---
OB-PP Progress Note - General PPD1 - Subjective Date: 09/21/17 Lochia: Moderate Pain: controlled Voiding: voiding Nausea or Vomiting Present: No - Objective Vital Signs: Last Vital Signs Temp 98.0 F 09/21/17 07:15 Pulse 98 09/21/17 07:15 Resp 20 09/21/17 07:15 BP 147/97 H 09/21/17 07:15 Pulse Ox 98 09/21/17 07:15 Urine Output: good General: alert and oriented Abdomen: fundus firm Extremities: non-tender Laboratory: Laboratory Results - last 24 hr 09/21/17 07:11 WBC 14.6 H RBC 3.46 L Hgb 10.7 L Hct 31.6 L D MCV 91.3 MCH 30.9 MCHC 33.9 RDW Std Deviation 43.3 Plt Count 182 MPV 10.1 - Assessment Assessment: - Plan Plan: routine care, discharge home (Would like to go home this evening. )
[2017-09-21] MEDS: VALACYCLOVIR 500 MG TABLET PO SCH (08:20)
--- NOTE | 2017-09-21 08:31 | Labor and Delivery Note ---
DATE OF DELIVERY: 09/20/2017 DIAGNOSES 1. 31-year-old white female G4, P1 at 39.3 weeks gestational age. 2. Pitocin induction of labor for logistics. 3. Epidural x2. 4. Artificial rupture of membranes. 5. Spontaneous vaginal delivery. 6. Two-vessel umbilical cord. 7. Male infant 8/9 Apgars, 3655 grams (Altaf Mcgowan). 8. Second-degree perineal laceration and right vulvar laceration - repaired. 9. Left vulvar laceration - not repaired. DESCRIPTION This patient was brought in for induction for logistics. Cervix was initially fingertip but she was multip. She has a history of herpes simplex but hasn't had an outbreak for years and there is no evidence of lesions today. Pitocin reached a maximum of 8-10 milliunits a minute. Pitocin was turned down because of some late decelerations early on and it recovered okay. The patient's blood pressures were in the mild range throughout labor off and on. Platelets were normal on lab. The patient's first epidural block didn't work very well, so ultimately she had to be re-blocked. Artificial rupture of membranes occurred at 13:27 p.m. Eventually the patient made it to complete dilation. We began pushing and a spontaneous vaginal delivery occurred from the OA position. Infant was bulb suctioned after delivery of the head and then after delivery of the body. Cord was allowed to drain for about a minute and a half to 2 minutes and then was doubly clamped and cut. Infant was initially placed on mother's abdomen. Placenta delivered spontaneously and was intact. There was a second- degree perineal laceration that was repaired with 2-0 Vicryl. There were bilateral vulvar lacerations that were very superficial. I put a couple of 3-0 chromic stitches on the right one to bring the edges together so it wouldn't gape so much. They were hemostatic. I had them put triple antibiotic ointment over the top of them once cleaning was done. was known to have a two- vessel cord and day trader was notified. Maternal blood type is O+, rubella is immune. GBS is negative. MTDD
[2017-09-21] MEDS ORDERED: DOCUSATE CALCIUM 240 MG CAPSULE PO SCH (09:00)
[2017-09-21] MEDS ORDERED: GUAIFENESIN/DM 5ml ORAL LIQUID PO PRN (16:11)
[2017-09-21] MEDS ORDERED: MENTHOL COUGH DROPS (RICOLA) MM PRN (16:14)
[2017-09-21 16:46] VITALS: BP 151/91; PULSE 90; RESP 18; TEMP 98.4
== END 2017-09-21 19:15 | disposition home or self-care (01) | DRG 774 ==
LOC: MC 06:23
PROVIDERS: ADMIT Obstetrics & Gynecology; ATTEND Obstetrics & Gynecology